=== PATIENT | female | born 1980 | race Caucasian/White ===

== ENCOUNTER 2019-11-15 07:47 | Day surgery (SDC) | payer MEDICAID ==
[2019-11-09 09:19] LABS: BASOPHILS # (AUTO) 0.1 X10'3 (0-0.2); BASOPHILS % (AUTO) 0.8 % (0-1); EOSINOPHILS # (AUTO) 0.4 X10'3 (0-0.9); EOSINOPHILS % (AUTO) 4.5 % (0-6); LYMPHOCYTES # (AUTO) 2.5 X10'3 (1.1-4.8); LYMPHOCYTES % (AUTO) 28.5 % (21-51); MEAN CORPUSCULAR HEMOGLOBIN 29.3 PG (27.0-31.0); MEAN CORPUSCULAR HGB CONC 33.4 g/dL (33.0-36.5); MEAN CORPUSCULAR VOLUME 87.7 FL (78-98); MEAN PLATELET VOLUME 8.7 FL (7.4-10.4); MONOCYTES # (AUTO) 0.7 X10'3 (0-0.9); MONOCYTES % (AUTO) 8.1 % (2-12); NEUTROPHILS # (AUTO) 5.1 X10'3 (1.8-7.7); NEUTROPHILS % (AUTO) 58.1 % (42-75); PRE OP HEMATOCRIT 41.4 % (35.0-45.0); PRE OP HEMOGLOBIN 13.8 g/dL (12.0-16.0); PRE OP PLATELET COUNT 321 X10'3 (140-440); RED BLOOD COUNT 4.72 X10'6 (4.20-5.60); RED CELL DISTRIBUTION WIDTH 13.7 % (11.5-14.5)
[2019-11-09 09:37] LABS: ALBUMIN 3.8 G/DL (3.4-5.0); ALBUMIN/GLOBULIN RATIO 0.9 (1.1-1.5); ALKALINE PHOSPHATASE 135 IU/L (46-116); BLOOD UREA NITROGEN 11 MG/DL (7-18); BUN/CREATININE RATIO 12.1 (6.6-38.0); CALCIUM 8.8 MG/DL (8.5-10.1); CHLORIDE 103 MMOL/L (99-107); CREATININE 0.91 MG/DL (0.40-0.90); PRE OP ANION GAP 8 (8-16); PRE OP AST 52 U/L (10-37); PRE OP BILIRUB, TOTAL 0.2 MG/DL (0.0-1.0); PRE OP GLUCOSE 89 MG/DL (70-104); PRE OP SODIUM 139 MMOL/L (135-145); TOTAL CARBON DIOXIDE 28.1 MMOL/L (24-32); TOTAL PROTEIN 7.9 G/DL (6.4-8.2); eGFR 68 ML/MIN
[2019-11-09 09:39] LABS: PRE OP ALT 94 U/L (30-65); PRE OP POTASSIUM 3.3 MMOL/L (3.4-5.1)
[2019-11-09 09:43] LABS: HCG SERUM QL NEGATIVE
[~2019-11-15] VITALS: Ht 162.6 cm; Wt 67.0 kg
[2019-11-15] VITALS (10 sets, daily range): BP systolic 89–134; BP diastolic 55–94
[~2019-11-15 07:47] MED LIST: IBUP100O19 PO; MESSAGE TO NURSING IV ONE; acetaminophen 325mg tablet PO ONE; celeCOXIB 100mg capsule PO ONE; famotidine 20mg tablet PO ONE; gabapentin 300mg capsule PO ONE; ringers solution, lacted 1,000 ML IV SCH; vancomycin 1,500 MG in NS 300ml IV soln IV ONE
[2019-11-15] MEDS ORDERED: ringers solution, lacted 1,000 ML IV SCH (08:27)
[2019-11-15] MEDS ORDERED: morphine 4 MG/ML inj SYRINge IV PRN (08:30)
[2019-11-15] MEDS ORDERED: ondansetron/PF 4mg/2ml inj IV PRN (08:30)
[2019-11-15] MEDS ORDERED: labetalol 20mg/4ml (5mg/ml) syringe IV PRN (08:30)
[2019-11-15] MEDS ORDERED: morphine 2 MG/ML inj. syringe IV PRN (08:30)
[2019-11-15] MEDS ORDERED: hydrALAZINE 20mg/ml inj. IV PRN (08:30)
[2019-11-15] MEDS ORDERED: fentaNYL/PF 50MCG/1 ML 2ML syringe IV PRN ×2 (08:30)
[2019-11-15] MEDS ORDERED: triamcinolone acetonide 40mg/ml inj ONE (09:11)
[2019-11-15] MEDS ORDERED: sevoflurane 250ml liquid IH ONE (10:18)
[2019-11-15] MEDS ORDERED: fentaNYL/PF 50MCG/1 ML 2ML syringe ONE (10:18)
[2019-11-15] MEDS ORDERED: midazolam 2 mg/2 ml injection ONE (10:18)
[2019-11-15] MEDS ORDERED: LIDOcaine 2% (20mg/ml) 5ml vial ONE (10:20)
[2019-11-15] MEDS ORDERED: ROPIVAcaine 0.5% (5mg/ml) 30ml vial ONE (10:21)
[2019-11-15] MEDS ORDERED: propofol inj 20 ML IV ONE (10:21)
[2019-11-15] MEDS ORDERED: BUPIVAcaine/PF 2.5 mg/ml (0.25%) 30ml vial ONE (10:36)
--- NOTE | 2019-11-15 10:44 | NUR ---
Received from OR via [facility] , accompanied by Anesthesiologist LISA and report given by Anesthesiolgist. PATIENT WITH SINGLE CDI BANDAID TO RIGHT ANTERIOR SHOULDER. + RADIAL PULSE PRESENT. VSS. 10L. MASK ON WITH 96% SATURATIONS. 20G PIV IN LEFT UE RUNNING LR AT 100.VSS Addendum: 11/15/19 at 1056 by Brian Pacheco RN, RN Amended: Links added.
--- NOTE | 2019-11-15 12:34 | NUR ---
I HAVE REVIEWED D/C INSTRUCTIONS WITH PATIENT AND FAMILY AND THEY HAVE VERBALIZED UNDERSTANDING. PATIENT D/C HOME WITH ALL BELONGINGS AND FAMILY GAVE TRANSPORT HOME. PATIENT FAMILY DROVE PATIENT HOME. RIGHT UE DRESSING CDI. ALL CRITERIA FOR DC HOME HAS BEEN MET. RIGHT UE STILL NUMB FROM OR. + CAP REFILL AND RADIAL PULSE. VSS. DENIES PAIN. Addendum: 11/15/19 at 1240 by Brian Pacheco RN, RN Amended: Links added.
== END 2019-11-15 12:34 | disposition home or self-care (01) ==
LOC: PAS 07:47
PROVIDERS: ATTEND Orthopaedic Surgery
DX: M75.01 Adhesive capsulitis of right shoulder (principal); G89.18 Other acute postprocedural pain; E66.8 Other obesity; Z68.26 Body mass index [BMI] 26.0-26.9, adult; Z20.828 Contact with and (suspected) exposure to other viral communicable diseases; Z88.8 Allergy status to other drugs, medicaments and biological substances; Z88.0 Allergy status to penicillin; Z90.721 Acquired absence of ovaries, unilateral; Z11.59 Encounter for screening for other viral diseases; Z79.899 Other long term (current) drug therapy; Z98.890 Other specified postprocedural states; Z79.82 Long term (current) use of aspirin
CPT/HCPCS: 23700; 36415; 64415; 76942; 80053; 82948; 84703; 85025; J2001; J2250; J2704; J3010; J3301; J3370; J3490; J7040; U0003; A4215; A4618; A6449; J2795; J7120